=== PATIENT | male | born 1960 | race Caucasian/White ===

== ENCOUNTER 2019-04-07 09:51 | Emergency (ER) | payer SELFPAY ==
[~2019-04-07] VITALS: Ht 172 cm; Wt 72.0 kg
[2019-04-07] MEDS ORDERED: PHEN100C4 PO (10:17)
[2019-04-07] MEDS ORDERED: MIRT30TA PO (10:17)
[2019-04-07] MEDS ORDERED: FLUO20CA42 PO (10:17)
[2019-04-07] MEDS ORDERED: CIDE500T PO (10:17)
[2019-04-07] MEDS ORDERED: LACTATED RINGERS 1,000 ML IV ONE (10:41)
--- NOTE | 2019-04-07 10:45 | ED Integumentary General ---
General Chief Complaint: Skin/Wound Problems Stated Complaint: LUMP ON L LEG;WEAKNESS Nursing Triage Note: pt presents to ed with complaints of wound on l side of groin that he noticed about two days go. Source: patient Exam Limitations: no limitations (NIKIA BERMAN) History of Present Illness Date Seen by Provider: Apr 07, 2019 Time Seen by Provider: 10:28 Initial Comments The patient presents to ER by private conveyance with chief complaint for the past 2 days having some weakness and swelling pain and discharged from an abscess behind his scrotum. He's not had any fevers or chills. No immunocompromise and on steroids. Not been on antibiotics or seen anybody for it. He says been getting some discharge out of it when he squeezes on it. He is not diabetic. (NIKIA BERMAN) Allergies and Home Medications Allergies Coded Allergies: No Known Drug Allergies (Unverified , 04/07/19) Home Medications Clindamycin HCl 300 Mg Capsule, 300 MG PO TID Prescribed by: DEBORAH MCINTYRE on 04/07/19 1351 Fluoxetine HCl 20 Mg Capsule, 20 MG PO DAILY, (Reported) Phenytoin Sodium Extended 100 Mg Capsule, 500 MG PO DAILY, (Reported) Patient Home Medication List Home Medication List Reviewed: Yes (NIKIA BERMAN) Review of Systems Review of Systems Constitutional: No chills, No diaphoresis, No fever; malaise, weakness EENTM: No hearing loss, No ear pain Respiratory: No cough, No short of breath Cardiovascular: No chest pain, No edema Gastrointestinal: No abdominal pain, No constipation, No diarrhea, No nausea Genitourinary: No discharge, No dysuria Musculoskeletal: No back pain, No joint pain (NIKIA BERMAN) Past Scwbirq-Kkzxyk-Nltnzp Hx Patient Social History Alcohol Use: Past History Recreational Drug Use: No 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 Smoking Status: Current Everyday Smoker Type Used: Cigarettes Recent Foreign Travel: No Contact w/Someone Who Travel: No Recent Infectious Disease Expo: No Recent Hopitalizations: No Physical Abuse: No Sexual Abuse: No Mistreated: No Fear: No (NIKIA BERMAN) Seasonal Allergies Seasonal Allergies: No (NIKIA BERMAN) Past Medical History Surgeries: No Respiratory: No Cardiac: No Neurological: Yes Seizure Disorder Genitourinary: No Gastrointestinal: No Musculoskeletal: No Endocrine: No HEENT: No Cancer: No Psychosocial: Yes Depression Integumentary: No Blood Disorders: No (NIKIA BERMAN) Physical Exam Vital Signs Vital Signs - First Documented 04/07/19 10:06 Temp 37.9 Pulse 74 Resp 18 B/P (MAP) 134/75 Pulse Ox 96 (DEBORAH MCINTYRE) Vital Signs Capillary Refill : Less Than 3 Seconds (NIKIA BERMAN) General Appearance: WD/WN, no apparent distress Cardiovascular: normal peripheral pulses, regular rate, rhythm Respiratory: no respiratory distress, no accessory muscle use Gastrointestinal: normal bowel sounds, non tender, soft, other (no psoas sign) Neurologic/Psychiatric: alert, oriented x 3 Skin: normal color, warm/dry, other (Skin of the perineum on the left side has erythema, swelling, tenderness, pointing and discharge. Months.) (NIKIA BERMAN) Procedures/Interventions I&D : Blade Size: 11 I & D Procedure: betadine prep, sterile drapes applied Progress The wound was prepped with Betadine. A small incision with an 11 blade was made into the wound. Minimal amount of drainage was expressed. Purulent in nature. Sterile dressing was applied. (DEBORAH MCINTYRE) Progress/Results/Core Measures Results/Orders Lab Results Laboratory Tests Test 04/07/19 10:57 Range/Units White Blood Count 10.0 4.3-11.0 10^3/uL Red Blood Count 4.51 4.35-5.85 10^6/uL Hemoglobin 14.9 13.3-17.7 G/DL Hematocrit 42 40-54 % Mean Corpuscular Volume 93 80-99 FL Mean Corpuscular Hemoglobin 33 25-34 PG Mean Corpuscular Hemoglobin Concent 35 32-36 G/DL Red Cell Distribution Width 13.4 10.0-14.5 % Platelet Count 290 130-400 10^3/uL Mean Platelet Volume 9.4 7.4-10.4 FL Neutrophils (%) (Auto) 72 42-75 % Lymphocytes (%) (Auto) 12 12-44 % Monocytes (%) (Auto) 11 0-12 % Eosinophils (%) (Auto) 4 0-10 % Basophils (%) (Auto) 1 0-10 % Neutrophils # (Auto) 7.3 1.8-7.8 X 10^3 Lymphocytes # (Auto) 1.2 1.0-4.0 X 10^3 Monocytes # (Auto) 1.1 H 0.0-1.0 X 10^3 Eosinophils # (Auto) 0.4 H 0.0-0.3 10^3/uL Basophils # (Auto) 0.1 0.0-0.1 10^3/uL Sodium Level 137 135-145 MMOL/L Potassium Level 3.8 3.6-5.0 MMOL/L Chloride Level 104 98-107 MMOL/L Carbon Dioxide Level 23 21-32 MMOL/L Anion Gap 10 5-14 MMOL/L Blood Urea Nitrogen 13 7-18 MG/DL Creatinine 0.75 0.60-1.30 MG/DL Estimat Glomerular Filtration Rate > 60 BUN/Creatinine Ratio 17 Glucose Level 98 70-105 MG/DL Calcium Level 9.2 8.5-10.1 MG/DL Corrected Calcium 9.0 8.5-10.1 MG/DL Total Bilirubin 0.6 0.1-1.0 MG/DL Aspartate Amino Transf (AST/SGOT) 15 5-34 U/L Alanine Aminotransferase (ALT/SGPT) 12 0-55 U/L Alkaline Phosphatase 109 40-136 U/L Total Protein 7.4 6.4-8.2 GM/DL Albumin 4.2 3.2-4.5 GM/DL (DEBORAH MCINTYRE) My Orders Orders - DEBORAH MCINTYRE Ceftriaxone For Iv Use (Rocephin For I (04/07/19 13:45) Lidocaine 1% Inj 20 Ml (Xylocaine 1% Inj (04/07/19 13:45) Wound Culture (04/07/19 13:32) (DEBORAH MCINTYRE) Medications Given in ED Current Medications Medications Dose Ordered Sig/Rayshawn Route Start Time Stop Time Status Last Admin Dose Admin Ceftriaxone Sodium 1000 mg/ Sterile Water 10 ml @ 200 mls/hr ONCE ONCE IV 04/07/19 13:45 04/07/19 13:47 DC 04/07/19 13:39 200 MLS/HR Iohexol 100 ml ONCE ONCE IV 04/07/19 12:00 04/07/19 12:01 DC 04/07/19 12:23 91 ML Lactated Ringer's 1,000 ml @ 0 mls/hr Q0M ONCE IV 04/07/19 10:41 04/07/19 10:43 DC 04/07/19 10:53 0 MLS/HR Lidocaine HCl 20 ml ONCE ONCE INJ 04/07/19 13:45 04/07/19 13:46 DC 04/07/19 13:40 20 ML Sodium Chloride 100 ml ONCE ONCE IV 04/07/19 12:00 04/07/19 12:01 DC 04/07/19 12:23 80 ML (DEBORAH MCINTYRE) Vital Signs/I&O 04/07/19 04/07/19 10:06 13:59 Temp 37.9 Pulse 74 87 Resp 18 16 B/P (MAP) 134/75 127/70 Pulse Ox 96 98 (DEBORAH MCINTYRE) Blood Pressure Mean: 94 Progress Progress Note : Time: 10:44 Progress Note 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 Patient has aseptic vital signs. Plan to check basic labs give him a liter fluids and get a CT with IV contrast to rule out abscess tracking. If it's negative then we can bring him and have him follow-up with general surgery as necessary. (NIKIA BERMAN) Progress Note : Progress Note 1327: Labs and CT was reviewed. Did not show fluid collection or tunneling. Discussed case with Dr. Keller at this time and she recommends having the patient follow-up in clinic tomorrow for reevaluation and placing him on clindamycin with giving him 1 g of Rocephin IV while in the emergency room. Patient agrees with plan of care plans for follow-up. (DEBORAH MCINTYRE) Departure Impression Primary Impression: Abscess Disposition: 01 HOME, SELF-CARE Condition: Stable/Unchanged Departure-Patient Inst. Decision time for Depature: 13:49 (DEBORAH MCINTYRE) Referrals: [facility] (PCP) Primary Care Physician Patient Instructions: Skin Abscess Add. Discharge Instructions: Call today to schedule an appointment to be seen by Dr. Connors [facility]. Get your prescription filled and taken as directed. Return back to the emergency room for worsening symptoms or concerns as needed. Change the dressing to the area twice a day. All discharge instructions reviewed with patient and/or family. Voiced understanding. Scripts Clindamycin HCl (Clindamycin HCl) 300 Mg Capsule 300 MG PO TID for 7 Days, #21 CAP Prov: DEBORAH MCINTYRE 04/07/19 NIKIA BERMAN Apr 07, 2019 10:45 DEBORAH MCINTYRE Apr 07, 2019 13:51
[2019-04-07 11:06] LABS: BASOPHILS # (AUTO) 0.1 10^3/uL (0.0-0.1); BASOPHILS % (AUTO) 1 % (0-10); EOSINOPHILS # (AUTO) 0.4 10^3/uL (0.0-0.3); EOSINOPHILS % (AUTO) 4 % (0-10); HEMATOCRIT 42 % (40-54); HEMOGLOBIN 14.9 G/DL (13.3-17.7); LYMPHOCYTES # (AUTO) 1.2 X 10^3 (1.0-4.0); LYMPHOCYTES % (AUTO) 12 % (12-44); MEAN CORPUSCULAR HEMOGLOBIN 33 PG (25-34); MEAN CORPUSCULAR HGB CONC 35 G/DL (32-36); MEAN CORPUSCULAR VOLUME 93 FL (80-99); MEAN PLATELET VOLUME 9.4 FL (7.4-10.4); MONOCYTES # (AUTO) 1.1 X 10^3 (0.0-1.0); MONOCYTES % (AUTO) 11 % (0-12); NEUTROPHILS # (AUTO) 7.3 X 10^3 (1.8-7.8); NEUTROPHILS % (AUTO) 72 % (42-75); PLATELET COUNT 290 10^3/uL (130-400); RED CELL DISTRIBUTION WIDTH 13.4 % (10.0-14.5)
[2019-04-07 11:33] LABS: ALANINE AMINOTRANSFERASE 12 U/L (0-55); ALBUMIN 4.2 GM/DL (3.2-4.5); ALKALINE PHOSPHATASE 109 U/L (40-136); BILIRUBIN,TOTAL 0.6 MG/DL (0.1-1.0); BUN/CREATININE RATIO 17; CALCIUM 9.2 MG/DL (8.5-10.1); CARBON DIOXIDE 23 MMOL/L (21-32); CHLORIDE 104 MMOL/L (98-107); CREATININE SERUM 0.75 MG/DL (0.60-1.30); GFR ESTIMATED > 60; GLUCOSE 98 MG/DL (70-105); POTASSIUM 3.8 MMOL/L (3.6-5.0); SODIUM 137 MMOL/L (135-145); TOTAL PROTEIN 7.4 GM/DL (6.4-8.2)
[2019-04-07] MEDS ORDERED: NS 100 ML (IVPB) BAG IV ONE (12:00)
[2019-04-07] MEDS ORDERED: IOHEXOL 350 MG/ML 100 ML (OMNIPAQUE 350) VIAL IV ONE (12:00)
--- NOTE | 2019-04-07 12:47 | Diagnostic Imaging Report ---
PROCEDURE: CT abdomen and pelvis with contrast. TECHNIQUE: Multiple contiguous axial images were obtained through the abdomen and pelvis after administration of intravenous contrast. Auto Exposure Controls were utilized during the CT exam to meet ALARA standards for radiation dose reduction. INDICATION: Scrotal mass. FINDINGS: No comparison available. Limited views of lower thorax are normal. Liver is normal. No focal liver lesions are seen. Gallbladder is normal. No biliary ductal dilation. Portal vein is patent. Pancreas is normal. Spleen and adrenal glands are normal. Kidneys enhance symmetrically without focal lesion. No hydronephrosis. Urinary bladder is normal. There are no dilated loops of large or small bowel. No obstruction or inflammation. No abdominal or pelvic lymphadenopathy. 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 There is reconstitution of the left common femoral artery via the left inferior epigastric artery. Abdominal aorta is atherosclerotic without aneurysm. There is extensive fat stranding involving the left aspect of the scrotum and inguinal canal extending into the left aspect of the perineum. No soft tissue gas is seen. No drainable fluid collection is present. There is an area of heterotopic ossification in the right aspect of the perineum, likely from prior infectious episode. There are no suspicious osseous lesions. IMPRESSION: 1. Stranding involving the left inguinal canal, scrotum and perineum without drainable fluid collection or soft tissue gas. 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 2. Occluded left common and external iliac arteries with distal reconstitution via the left inferior epigastric artery. Dictated by: Dictated on workstation # [id number]
[2019-04-07] MEDS ORDERED: LIDOCAINE 1% INJ 20 ML 20 ML VIAL INJ ONE (13:45)
[2019-04-07] MEDS ORDERED: cefTRIAXone FOR IV USE 1,000 MG in WATER (STERILE) FOR INJECTION 10 ML IV ONE (13:45)
[2019-04-07] MEDS ORDERED: CLIN300C11 PO (13:51)
[2019-04-07 13:59] VITALS: BP 127/70
== END 2019-04-07 13:59 | disposition home or self-care (01) ==
LOC: ER 09:53
DX: N45.4 Abscess of epididymis or testis (principal); G40.909 Epilepsy, unspecified, not intractable, without status epilepticus; F32.9 Major depressive disorder, single episode, unspecified; F17.210 Nicotine dependence, cigarettes, uncomplicated
CPT/HCPCS: 10060; 36415; 74177; 80053; 85025; 87070; 87077; 87186; 87205

== ENCOUNTER → 2019-07-14 | Outpatient (CLI) | payer OTHER ==
[~2019-07-14] MED LIST: CIDE500T PO; CLIN300C11 PO; FLUO20CA42 PO; MIRT30TA PO; PHEN100C4 PO
--- NOTE | 2019-07-14 15:23 | Diagnostic Imaging Report ---
INDICATION: Claudication. FINDINGS: Segmental pressures of lower extremity were performed. Ankle-brachial indices are abnormally low measuring 0.50 on the right and 0.49 on the left. IMPRESSION: Significantly low ankle-brachial indices. Arterial Doppler would be useful for further evaluations. Dictated by: Dictated on workstation # [id number]
== END ==
LOC: RAD 12:52
PROVIDERS: ATTEND Internal Medicine
DX: I73.9 Peripheral vascular disease, unspecified (principal)
CPT/HCPCS: 93922

== ENCOUNTER → 2020-07-19 | Outpatient (CLI) | payer MEDICAID, OTHER ==
[~2020-07-19] MED LIST changes: +ASPI-1238 PO; +CHRM1TAB PO; +CILO100T PO; -CLIN300C11 PO; +CLIN300C12 PO; +HYDR50TA76 PO; +MIRT-94 PO; -MIRT30TA PO; +MULT-1056 PO; +TR1C15 TP; +VORT10TA PO
--- NOTE | 2020-07-19 15:39 | Diagnostic Imaging Report ---
PROCEDURE: US Bilateral lower extremity arterial. TECHNIQUE: Multiple real-time grayscale images are obtained through both lower extremity arterial systems with color Doppler imaging and color Doppler spectral analysis. INDICATION: Stents in the bilateral legs. Atherosclerosis. Peripheral arterial disease. COMPARISON: None FINDINGS: Right lower extremity: The common femoral artery has a mostly triphasic waveform and measures 122 cm/s. The deep femoral artery has a biphasic waveform and measures 100 cm/s. The superficial femoral artery (SFA) has a biphasic waveform proximally and measures 101 cm/s. The SFA has a monophasic waveform at the midportion, measuring 85 cm/s. The distal SFA has atherosclerosis and a monophasic waveform measures 71 cm/s. The popliteal artery has atherosclerosis and a monophasic waveform measuring 51 cm/s. The distal posterior tibial artery has a monophasic waveform and measures 38 cm/s. The dorsalis pedis has a monophasic waveform and measures 45 cm/s. Left lower extremity: The common femoral artery has a triphasic waveform and measures 108 cm/s. The deep femoral artery has a biphasic waveform and measures 72 cm/s. The proximal SFA has atherosclerosis and a triphasic waveform measuring 131 cm/s. The mid SFA has a triphasic waveform and measures 107 cm/s. The distal SFA has a triphasic waveform and measures 129 cm/s. The popliteal artery has mild atherosclerosis, triphasic waveform and measures 98 cm/s. The posterior tibial artery has a biphasic waveform and measures about 50 cm/s. The dorsalis pedis has a monophasic waveform and measures 103 cm/s. The anterior tibial artery has a monophasic waveform and measures 92 cm/s. IMPRESSION: 1. Mild atherosclerosis in the bilateral lower extremities with about 50% narrowing in the right superficial femoral artery. Monophasic waveforms are seen distal to this point. 2. Monophasic waveform at the left dorsalis pedis, with normal velocity. Dictated by: Dictated on workstation # [id number]
== END ==
LOC: RAD 13:30
PROVIDERS: ATTEND Nurse Practitioner
DX: I70.213 Atherosclerosis of native arteries of extremities with intermittent claudication, bilateral legs (principal); F17.210 Nicotine dependence, cigarettes, uncomplicated
CPT/HCPCS: 93925

== ENCOUNTER 2022-02-08 20:08 | Emergency (ER) | payer MEDICAID ==
[~2022-02-08] VITALS: Ht 172.7 cm; Wt 99.8 kg
[~2022-02-08 20:08] MED LIST changes: +CLIN-144 PO; -CLIN300C12 PO
[2022-02-08 20:41] LABS: BASOPHILS % (AUTO) 0 % (0-10); EOSINOPHILS # (AUTO) 0.1 10^3/uL (0.0-0.3); EOSINOPHILS % (AUTO) 1 % (0-10); HEMATOCRIT 44 % (40-54); HEMOGLOBIN 14.8 g/dL (13.3-17.7); LYMPHOCYTES # (AUTO) 0.7 10^3/uL (1.0-4.0); LYMPHOCYTES % (AUTO) 11 % (12-44); MEAN CORPUSCULAR HEMOGLOBIN 31 pg (25-34); MEAN CORPUSCULAR HGB CONC 34 g/dL (32-36); MEAN CORPUSCULAR VOLUME 92 fL (80-99); MEAN PLATELET VOLUME 9.1 fL (9.0-12.2); MONOCYTES # (AUTO) 0.6 10^3/uL (0.0-1.0); MONOCYTES % (AUTO) 8 % (0-12); NEUTROPHILS # (AUTO) 5.4 10^3/uL (1.8-7.8); NEUTROPHILS % (AUTO) 80 % (42-75); PLATELET COUNT 313 10^3/uL (130-400); WHITE BLOOD COUNT 6.8 10^3/uL (4.3-11.0)
[2022-02-08 20:49] LABS: ALBUMIN 4.4 GM/DL (3.2-4.5)
[2022-02-08 20:50] LABS: POTASSIUM 3.9 MMOL/L (3.6-5.0)
[2022-02-08 20:51] LABS: CALCIUM 8.9 MG/DL (8.5-10.1)
[2022-02-08 20:52] LABS: TOTAL PROTEIN 7.8 GM/DL (6.4-8.2)
[2022-02-08 20:53] LABS: INR 0.9 (0.8-1.4); PROTHROMBIN TIME PATIENT 12.6 SEC (12.2-14.7)
[2022-02-08 20:54] LABS: BILIRUBIN,TOTAL 0.3 MG/DL (0.1-1.0)
[2022-02-08 20:56] LABS: CREATININE SERUM 1.15 MG/DL (0.60-1.30)
[2022-02-08 20:58] LABS: MAGNESIUM 1.5 MG/DL (1.6-2.4)
[2022-02-08] MEDS ORDERED: LACTATED RINGERS 1,000 ML IV ONE (21:00)
--- NOTE | 2022-02-08 21:11 | Diagnostic Imaging Report ---
EXAMINATION: Chest 1 view. HISTORY: Fever. COMPARISON: None available. FINDINGS: The lung volumes are normal. Bibasilar opacities are seen. No large pleural effusion or pneumothorax is seen. The cardiomediastinal silhouette is normal in size and contour. No acute osseous abnormality is seen. IMPRESSION: Bibasilar opacities, likely representing atelectasis or infection. Dictated by: Dictated on workstation # [id number]
[2022-02-08 21:19] LABS: BILIRUBIN,URINE NEGATIVE (NEGATIVE); CLARITY,URINE CLEAR; COLOR,URINE YELLOW; GLUCOSE, URINE (UA) 2+ (NEGATIVE); KETONES,URINE NEGATIVE (NEGATIVE); LEUKOCYTE ESTERASE ,URINE NEGATIVE (NEGATIVE); NITRITE,URINE NEGATIVE (NEGATIVE); PH,URINE 5.5 (5-9); PROTEIN,URINE NEGATIVE (NEGATIVE)
[2022-02-08 21:27] LABS: BACTERIA,URINE NEGATIVE /HPF; SQUAMOUS EPITHELIAL CELL,UR 0-2 /HPF; WBC,URINE RARE /HPF
--- NOTE | 2022-02-08 22:03 | ED General ---
General Chief Complaint: COVID19 Suspect/Confirmed Stated Complaint: WEAKNESS Nursing Triage Note: PT AMB TO ED BY POV WITH C/O WEAKNESS, COUGH, FEVER, ACHINESS, CHILLS X 2 DAYS. DENIES CP, SOB. Source of Information: Patient Exam Limitations: No Limitations History of Present Illness Date Seen by Provider: Feb 08, 2022 Allergies and Home Medications Allergies Coded Allergies: No Known Drug Allergies (Unverified , 04/07/19) Patient Home Medication List Aspirin (Aspirin EC) 81 Mg Tablet.dr, 81 MG PO DAILY, (Reported) Entered as Reported by: BUBBA HILARIO on 08/19/19 0800 Chrm/Vasu/ Bt-Org Peel/Gr T (Apple Cider Vinegar Plus Tb) 1 Each Tablet, 2 EACH PO DAILY, (Reported) Entered as Reported by: BUBBA HILARIO on 08/19/19 0800 Cilostazol (Cilostazol) 100 Mg Tablet, 100 MG PO BID, (Reported) Entered as Reported by: BUBBA HILARIO on 08/19/19 0753 Hydroxyzine HCl (Hydroxyzine HCl) 50 Mg Tablet, 50 MG PO HS, (Reported) Entered as Reported by: BUBBA HILARIO on 08/19/19 0753 Multivit-Min/FA/Lycopen/Lutein (Men 50 Plus Multivitamin Tab) 1 Each Tablet, 1 EACH PO DAILY, (Reported) Entered as Reported by: BUBBA HILARIO on 08/19/19 0800 Phenytoin Sodium Extended (Dilantin) 100 Mg Capsule, 500 MG PO HS, (Reported) Entered as Reported by: JONATHON GASCA on 04/07/19 1017 Triamcinolone Acet (Triamcinolone Acetonide 0.1% Cream) 15 Gm Cr, 1 APPLIC TP BID, (Reported) Entered as Reported by: BUBBA HILARIO on 08/19/19 0800 Vortioxetine Hydrobromide (Trintellix) 10 Mg Tablet, 10 MG PO HS, (Reported) Entered as Reported by: BUBBA HILARIO on 08/19/19 0753 Past Ymndhvk-Kmxphu-Jghfhq Hx Patient Social History Tobacco Use?: No Smoking Status: Former Smoker Use of E-Cig and/or Vaping dev: No Substance use?: No Alcohol Use?: No Pt feels they are or have been: No Immunizations Up To Date Tetanus Booster (TDap): Less than 5yrs Influenza Vaccine Up-to-Date: No; Not Current First/Initial COVID19 Vaccinat: 2020 Second COVID19 Vaccination Shashi: 2020 Seasonal Allergies Seasonal Allergies: No Past Medical History Surgery/Hospitalization HX: SEIZURES, STENTS X7 Surgeries: No Respiratory: No Currently Using CPAP: No Currently Using BIPAP: No Cardiac: No Neurological: Yes Seizure Disorder Genitourinary: No Gastrointestinal: No Musculoskeletal: No Endocrine: No HEENT: No Cancer: No Psychosocial: Yes Depression Integumentary: No Blood Disorders: No Physical Exam-Suspected Sepsis Physical Exam Vital Signs Vital Signs - First Documented 02/08/22 20:20 Temp 39.6 Pulse 117 Resp 17 B/P (MAP) 114/80 (91) Pulse Ox 94 O2 Delivery Room Air Capillary Refill : Less Than 3 Seconds Blood Pressure Mean: 91 Height, Weight, BMI Height: '" Weight: lbs. oz. kg; 33.00 BMI Method: Focused Exam Lactate Level 02/08/22 20:50: Lactic Acid Level 1.92 Lactic Acid Level Laboratory Tests Test 02/08/22 20:50 Lactic Acid Level 1.92 MMOL/L (0.50-2.00) Progress/Results/Core Measures Suspected Sepsis SIRS Temperature: Pulse: 117 Respiratory Rate: 17 Laboratory Tests 02/08/22 20:36: White Blood Count 6.8 Blood Pressure 114 /80 Mean: 91 02/08/22 20:50: Lactic Acid Level 1.92 Laboratory Tests 02/08/22 18:36: INR Comment 0.9 02/08/22 20:36: Creatinine 1.15, Platelet Count 313, Total Bilirubin 0.3 Results/Orders Lab Results Laboratory Tests Test 02/08/22 18:36 02/08/22 20:36 02/08/22 20:50 02/08/22 21:10 Range/Units Prothrombin Time 12.6 12.2-14.7 SEC INR Comment 0.9 0.8-1.4 Activated Partial Thromboplast Time 28 24-35 SEC White Blood Count 6.8 4.3-11.0 10^3/uL Red Blood Count 4.75 4.30-5.52 10^6/uL Hemoglobin 14.8 13.3-17.7 g/dL Hematocrit 44 40-54 % Mean Corpuscular Volume 92 80-99 fL Mean Corpuscular Hemoglobin 31 25-34 pg Mean Corpuscular Hemoglobin Concent 34 32-36 g/dL Red Cell Distribution Width 13.2 10.0-14.5 % Platelet Count 313 130-400 10^3/uL Mean Platelet Volume 9.1 9.0-12.2 fL Immature Granulocyte % (Auto) 0 % Neutrophils (%) (Auto) 80 H 42-75 % Lymphocytes (%) (Auto) 11 L 12-44 % Monocytes (%) (Auto) 8 0-12 % Eosinophils (%) (Auto) 1 0-10 % Basophils (%) (Auto) 0 0-10 % Neutrophils # (Auto) 5.4 1.8-7.8 10^3/uL Lymphocytes # (Auto) 0.7 L 1.0-4.0 10^3/uL Monocytes # (Auto) 0.6 0.0-1.0 10^3/uL Eosinophils # (Auto) 0.1 0.0-0.3 10^3/uL Basophils # (Auto) 0.0 0.0-0.1 10^3/uL Immature Granulocyte # (Auto) 0.0 0.0-0.1 10^3/uL Sodium Level 135 135-145 MMOL/L Potassium Level 3.9 3.6-5.0 MMOL/L Chloride Level 98 98-107 MMOL/L Carbon Dioxide Level 23 21-32 MMOL/L Anion Gap 14 5-14 MMOL/L Blood Urea Nitrogen 17 7-18 MG/DL Creatinine 1.15 0.60-1.30 MG/DL Estimat Glomerular Filtration Rate 73 BUN/Creatinine Ratio 15 Glucose Level 214 H 70-105 MG/DL Calcium Level 8.9 8.5-10.1 MG/DL Corrected Calcium 8.6 8.5-10.1 MG/DL Magnesium Level 1.5 L 1.6-2.4 MG/DL Total Bilirubin 0.3 0.1-1.0 MG/DL Aspartate Amino Transf (AST/SGOT) 16 5-34 U/L Alanine Aminotransferase (ALT/SGPT) 15 0-55 U/L Alkaline Phosphatase 100 40-136 U/L Total Protein 7.8 6.4-8.2 GM/DL Albumin 4.4 3.2-4.5 GM/DL Lactic Acid Level 1.92 0.50-2.00 MMOL/L Influenza Type A (RT-PCR) Not Detected Not Detecte Influenza Type B (RT-PCR) Not Detected Not Detecte SARS-CoV-2 RNA (RT-PCR) Detected H Not Detecte Urine Color YELLOW Urine Clarity CLEAR Urine pH 5.5 5-9 Urine Specific Parrish >=1.030 1.016-1.022 Urine Protein NEGATIVE NEGATIVE Urine Glucose (UA) 2+ H NEGATIVE Urine Ketones NEGATIVE NEGATIVE Urine Nitrite NEGATIVE NEGATIVE Urine Bilirubin NEGATIVE NEGATIVE Urine Urobilinogen 0.2 < = 1.0 MG/DL Urine Leukocyte Esterase NEGATIVE NEGATIVE Urine RBC (Auto) NEGATIVE NEGATIVE Urine RBC NONE /HPF Urine WBC RARE /HPF Urine Squamous Epithelial Cells 0-2 /HPF Urine Renal Epithelial Cells NONE /HPF Urine Crystals NONE /LPF Urine Bacteria NEGATIVE /HPF Urine Casts NONE /LPF Urine Mucus NEGATIVE /LPF Urine Culture Indicated NO My Orders Orders - ZULEMA SEGOVIA MD Cbc With Automated Diff (02/08/22 20:12) Comprehensive Metabolic Panel (02/08/22 20:12) Magnesium (02/08/22 20:12) Ua Culture If Indicated (02/08/22 20:12) Ed Iv/Invasive Line Start (02/08/22 20:12) Blood Culture (02/08/22 20:38) Sputum Culture (02/08/22 20:38) Protime With Inr (02/08/22 20:38) Partial Thromboplastin Time (02/08/22 20:38) Chest 1 View, Ap/Pa Only (02/08/22 20:38) Vital Signs Adult Sepsis Patie Q15M (02/08/22 20:38) O2 (02/08/22 20:38) Remove Rings In Anticipation O (02/08/22 20:38) Lactic Acid Analyzer (02/08/22 20:38) Covid 19 Inhouse Test (02/08/22 20:38) Influenza A And B By Pcr (02/08/22 20:38) Lactated Ringers (Lr 1000 Ml Iv Solution (02/08/22 21:00) Magnesium Oxide Tablet (Mag Ox Tablet) (02/08/22 22:15) Rx-Nirmatrelvir/Ritonavir(Eua) (Rx-Paxlo (02/08/22 23:15) Medications Given in ED Current Medications Medications Dose Ordered Sig/Rayshawn Route Start Time Stop Time Status Last Admin Dose Admin Lactated Ringer's 1,000 ml @ 0 mls/hr Q0M ONCE IV 02/08/22 21:00 02/08/22 21:01 DC 02/08/22 20:59 0 MLS/HR Magnesium Oxide 400 mg ONCE ONCE PO 02/08/22 22:15 02/08/22 22:16 DC 02/08/22 22:35 400 MG Vital Signs/I&O 02/08/22 02/08/22 20:20 20:20 Temp 39.6 Pulse 117 Resp 17 B/P (MAP) 114/80 (91) Pulse Ox 94 O2 Delivery Room Air Room Air Capillary Refill : Less Than 3 Seconds Blood Pressure Mean: 91 Departure Impression Primary Impression: COVID-19 Disposition: 01 HOME, SELF-CARE Condition: Stable Departure-Patient Inst. Decision time for Depature: 23:03 Referrals: [facility] (PCP/Family) Primary Care Physician Patient Instructions: COVID-19 ED, Nirmatrelvir and Ritonavir FDA Fact Sheet Add. Discharge Instructions: Drink plenty of clear liquids to stay well-hydrated. Complete Paxlovid as prescribed. You may take Tylenol (acetaminophen) up to 1000 mg every 6 hours as needed for fever or pain. Continue to be active, up on your feet and walking around often. While laying in bed, change positions often. Obtain a pulse oximeter and check your oxygen levels a couple times a day or anytime you have increased shortness of breath. If you have multiple oxygen levels less than 92% or if you have any oxygen level less than 90%, return to the ER. Return to the ER if you also have generalized worsening of condition despite following these instructions. Quarantine for 5 days and until your symptoms have improved. Then mask for an additional 5 days. All discharge instructions reviewed with patient and/or family. Voiced unders tanding. ZULEMA SEGOVIA MD Feb 08, 2022 22:03
[2022-02-08] MEDS ORDERED: MAGNESIUM OXIDE (MAG-OX)400 MG TAB PO ONE (22:15)
[2022-02-08] MEDS ORDERED: RX-NIRMATRELVIR/RITONAVIR (PAXLOVID) #30 TABS PO SCH (23:15)
[2022-02-08 23:20] VITALS: BP 129/80
== END 2022-02-08 23:25 | disposition home or self-care (01) ==
LOC: EDUNIT# 20:08 → ER 20:10
DX: U07.1 COVID-19 (principal); Z87.891 Personal history of nicotine dependence
CPT/HCPCS: 36415; 71045; 80053; 81000; 83605; 83735; 85025; 85610; 85730; 87040; 87636